=== PATIENT | male | born 1985 | race Caucasian/White ===

== ENCOUNTER 2018-12-16 20:21 | Emergency (ER) | payer SELFPAY ==
[~2018-12-16] VITALS: Ht 180.3 cm; Wt 137.0 kg
[2018-12-16 20:27] VITALS: RESP 20; Ht 180.3 cm; Wt 137.0 kg
--- NOTE | 2018-12-16 21:05 | ERD ---
ER Documentation Chief Complaint Chief Complaint CHEST PRESSURE, AP RADIATING TO BLADDER X'S 3 DAYS HPI 33-year-old male, previously healthy, presents the emergency department, complaining of pelvic pain for 3 days. The patient denies fevers, no chills, no dysuria, no hematuria. The patient also reports intermittent episodes of chest pressure but no palpitations or shortness of breath. No family history of heart disease, no personal history of cardiac problems. ROS All systems reviewed and are negative except as per history of present illness. Medications Home Meds Active Scripts Hydrochlorothiazide* (Hydrochlorothiazide*) 25 Mg Tab, 25 MG PO DAILY, #30 TAB Prov:VLADIMIR MCCLURE MD 12/16/18 Lorazepam* (Ativan*) 0.5 Mg Tablet, 0.5 MG PO Q8H PRN for ANXIETY, #10 TAB Prov:VLADIMIR MCCLURE MD 12/16/18 Hydrocodone/Acetaminophen (Tillar 5-325 Tablet) 1 Each Tablet, 1 TAB PO BID PRN for PAIN, #6 TAB Prov:VLADIMIR MCCLURE MD 12/16/18 Amoxicillin/Potassium Clav (Amox-Clav 875-125 mg Tablet) 875-125 mg Tab, 1 TAB PO BID for 10 Days, #20 TAB Prov:VLADIMIR MCCLURE MD 12/16/18 Allergies Allergies: Coded Allergies: No Known Allergy (Unverified , 12/16/18) Physical Exam Vitals Vital Signs Date Temp Pulse Resp B/P (MAP) Pulse Ox O2 O2 Flow FiO2 Time Delivery Rate 12/16/18 99.3 23:04 12/16/18 102 161/101 22:44 (121) 12/16/18 98.5 93 20 199/113 100 20:27 (141) Physical Exam Const: No acute distress Head: Atraumatic Eyes: Normal Conjunctiva ENT: Normal External Ears, Nose and Mouth. Neck: Full range of motion. No meningismus. Resp: Clear to auscultation bilaterally Cardio: Regular rate and rhythm, no murmurs Abd: Soft, non tender, non distended. Normal bowel sounds Skin: No petechiae or rashes Back: No midline or flank tenderness Ext: No cyanosis, or edema Neur: Awake and alert Psych: Normal Mood and Affect Result Diagram: 12/16/18212312/16/182123 Results 24 hrs Laboratory Tests Test 12/16/18 21:24 White Blood Count 9.2 10^3/ul Red Blood Count 5.54 10^6/ul Hemoglobin 15.7 g/dl Hematocrit 45.5 % Mean Corpuscular Volume 82.1 fl Mean Corpuscular Hemoglobin 28.3 pg Mean Corpuscular Hemoglobin Concent 34.5 g/dl Red Cell Distribution Width 13.0 % Platelet Count 309 10^3/UL Mean Platelet Volume 9.3 fl Immature Granulocytes % 0.800 % Neutrophils % 61.2 % Lymphocytes % 25.2 % Monocytes % 8.9 % Eosinophils % 3.4 % Basophils % 0.5 % Nucleated Red Blood Cells % 0.0 /100WBC Immature Granulocytes # 0.070 10^3/ul Neutrophils # 5.6 10^3/ul Lymphocytes # 2.3 10^3/ul Monocytes # 0.8 10^3/ul Eosinophils # 0.3 10^3/ul Basophils # 0.1 10^3/ul Nucleated Red Blood Cells # 0.0 10^3/ul Urine Color YELLOW Urine Clarity CLEAR Urine pH 7.0 Urine Specific [place] 1.006 Urine Ketones NEGATIVE mg/dL Urine Nitrite NEGATIVE mg/dL Urine Bilirubin NEGATIVE mg/dL Urine Urobilinogen NEGATIVE mg/dL Urine Leukocyte Esterase NEGATIVE Nimo/ul Urine Hemoglobin NEGATIVE mg/dL Urine Glucose NEGATIVE mg/dL Urine Total Protein NEGATIVE mg/dl Sodium Level 141 mmol/L Potassium Level 3.7 mmol/L Chloride Level 105 mmol/L Carbon Dioxide Level 27 mmol/L Anion Gap 9 Blood Urea Nitrogen 9 mg/dl Creatinine 0.76 mg/dl Est Glomerular Filtrat Rate mL/min > 60 mL/min Glucose Level 127 mg/dl Calcium Level 9.8 mg/dl Total Bilirubin 0.4 mg/dl Direct Bilirubin 0.00 mg/dl Indirect Bilirubin 0.4 mg/dl Aspartate Amino Transf (AST/SGOT) 33 IU/L Alanine Aminotransferase (ALT/SGPT) 59 IU/L Alkaline Phosphatase 101 IU/L Troponin I < 0.012 ng/ml Total Protein 8.2 g/dl Albumin 4.4 g/dl Globulin 3.80 g/dl Albumin/Globulin Ratio 1.15 Lipase 63 U/L Current Medications Medications Dose Sig/Zahira Start Time Status Last (Trade) Ordered Route PRN Stop Time Admin Dose Reason Admin Lorazepam 1 mg ONCE ONCE 12/16/18 DC 12/16/18 (Ativan) PO 21:30 21:35 12/16/18 21:31 Nicardipine 30 mg ONCE ONCE 12/16/18 DC 12/16/18 HCl PO 21:30 21:35 (Cardene) 12/16/18 21:31 650 mg ONCE ONCE 12/16/18 Acetaminophen PO 23:30 (Tylenol 12/16/18 23:31 Tab) 875 mg ONCE ONCE 12/16/18 Amoxicillin/ PO 23:30 Clavulanate 12/16/18 23:31 Potassium (Augmentin) Patient: DON INFANTE : 1985 Age: 33 Sex: M MR #: [id number] DOS: 12/16/182113 Ordering MD: VLADIMIR MCCLURE MD Location: [facility] Room/Bed: PROCEDURE: CT Abdomen and pelvis without contrast. CLINICAL INDICATION: Abdominal pain. TECHNIQUE: CT scan of the abdomen and pelvis was performed on a multi- detector high-resolution CT scanner. Contiguous axial images were obtained from the lung bases to the ischial tuberosities without intravenous contrast. Coronal and sagittal reformatted images were also obtained. Images were reviewed on the PACS workstation. DICOM images are available. One or more of the following dose reduction techniques were used: - Automated exposure control. - Adjustment of the mA and/or kV according to patient size. - Use of iterative reconstruction technique. Exam CTD/vol = 23.63 mGy. Total exam DLP = 1686.50 mGy-cm. COMPARISON: None. FINDINGS: Evaluation of the lung bases demonstrates no pleural or parenchymal disease. Abdomen: The liver is normal in size and diffusely low in attenuation consistent with fatty infiltration. There is no focal mass or dilatation of the biliary tree. The gallbladder is not distended. The spleen, pancreas and bilateral adrenal glands are within normal limits. Bilateral kidneys are normal in size with no contour deforming mass identified. There is no radiopaque renal or ureteral calculus identified. There is no hydronephrosis or hydroureter. There is no retroperitoneal adenopathy. The abdominal aorta is of normal caliber. There are scattered sigmoid diverticuli with mild thickening and stranding involving the proximal sigmoid colon. There is no bowel obstruction or free air. A normal appendix is identified. There is no ascites. Pelvis: The bladder is unremarkable. The prostate and seminal vesicles are within normal limits. There is no significant pelvic adenopathy or free fluid. Evaluation of the osseous structures demonstrates no suspicious lytic or blastic lesion. IMPRESSION: Mild diverticulitis of the proximal sigmoid colon. Fatty infiltration of the liver. .Rasheed Scott MD, Date Time Electronically viewed and signed by .Rasheed Scott MD, on 12/16/2018 22:59 EKG read by me: Rate/Rhythm: Regular rate and rhythm at a rate of 89 Intervals: Normal No acute ST changes. No T wave inversion Impression: No evidence of acute ischemia or arrhythmia Procedures/MDM Vital signs stable. Differential diagnosis include but not limited to: UTI, colitis, gastroenteritis, kidney stones, irritable bowel syndrome, inflammatory bowel syndrome, malabsorption syndrome, cholelithiasis, food intolerance, medication side effect, pancreatitis, diverticulitis, bowel obstruction. Physical examination and clinical presentation consistent most likely with mild diverticulitis and uncontrolled hypertension. During the ED course the patient remained stable, no new complaints. Results and clinical impression discussed with the patient who agrees with management. The patient is stable to be treated outpatient and will be discharged home; some side effects of prescribed medications (headache, rash, nausea, vomiting, diarrhea, drowsiness, habituation, bleeding, hypertension, in teractions with other medications) were reviewed. The patient was informed that the evaluation in the emergency department has been done to rule out an acute emergency, therefore, chronic conditions like malignancy or other diseases have not been evaluated; therefore, the patient was instructed to follow up with the primary care provider in the next 48h. If symptoms persist, worsen or new symptoms develop, then patient should return to the ED immediately. Instructions explained and given directly by me to the patient with acknowledgment and demonstrated understanding. Disclaimer: Inadvertent spelling and grammatical errors are likely due to EHR/dictation software use and do not reflect on the overall quality of patient care. Also, please note that the electronic time recorded on this note does not necessarily reflect the actual time of the patient encounter. Departure Diagnosis: Primary Impression: Diverticulitis Additional Impression: Uncontrolled hypertension Condition: Stable Additional Instructions: Thank you very much for allowing us to participate in your care. Your health and safety is our top priority at [facility]. Call your primary care doctor TOMORROW for an appointment during the next 2-4 days and bring all the information and medications prescribed. Have prescriptions filled and follow precisely the directions on the label. If the symptoms get worse and your provider is unavailable, return to the Emergency Department immediately. VLADIMIR MCCLURE MD Dec 16, 2018 21:05
[2018-12-16] MEDS ORDERED: LORAZEPAM 1 MG TAB PO ONE (21:30)
[2018-12-16] MEDS ORDERED: NICARDipine HCL 30 MG CAPSULE PO ONE (21:30)
[2018-12-16 22:44] VITALS: BP 161/101; PULSE 102
[2018-12-16] MEDS ORDERED: HYDR-4011 PO (23:21)
[2018-12-16] MEDS ORDERED: AMOX1TAB10 PO (23:21)
[2018-12-16] MEDS ORDERED: LORA-441 PO (23:21)
[2018-12-16] MEDS ORDERED: HYDR25TA6 PO (23:21)
[2018-12-16] MEDS ORDERED: ACETAMINOPHEN 325 MG TAB PO ONE (23:30)
[2018-12-16] MEDS ORDERED: AMOXICILLIN/CLAV 875 MG TAB PO ONE (23:30)
== END 2018-12-16 23:52 | disposition home or self-care (01) ==
LOC: FTE 20:21
DX: K57.32 Diverticulitis of large intestine without perforation or abscess without bleeding (principal); I10 Essential (primary) hypertension
CPT/HCPCS: 74176; 80053; 81003; 83690; 84484; 85025; 93005